=== PATIENT | male | born 1965 | race Caucasian/White ===

== ENCOUNTER 2019-10-03 14:01 | Outpatient (CLI) | payer OTHER ==
[~2019-10-03] VITALS: Ht 180.3 cm; Wt 90.0 kg
--- NOTE | ~2019-10-03 | HEMODYNAMI ---
PATIENT:STACEY SOUZA MEDICAL RECORD: [id number] : 63 [id number] ADMISSION DATE: 10/03/19 Generatedon:10/04/201912:22 Patient name: STACEY SOUZA Patient #: [id number] SSN: [id number] : 1965 Date of study: 10/04/2019 Page: Of Hemodynamic Procedure Report Patient Data Patient Demographics Procedure consent was obtained First Name: STACEY Gender: Male Last Name: LIBBY : 1965 Patient #: [id number] Age: 54 year(s) Race: SSN: [id number] Additional ID: [id number] Contact details [address]: [address] [place] [address] State: [place] City: [place] Zip code: [address] Admission Admission Data Admission Date: 10/03/2019 Admission Time: 14:01 Arrival Date: 10/04/2019 Arrival Time: 0:00 Admit Source: Other Insurance Payor: Private Room #: D.2116 health insurance [facility] #: [id number] Height (in.): 71 BSA: 2.1 (m2) Height (cm.): 180.34 BMI: 27.67 (kg/m2) Weight (lbs.): 198.42 Weight (kg.): 90 Lab Results Lab Result Date: 10/04/2019 Lab Result Time: 0:00 Biochemistry Name Units Result Min Max BUN mg/dl 17 --(---*)-- 7 18 CK-MB ng/ml 11.9 --(----)-* 0 3.6 Creatinine mg/dl 1.6 --(----)-* 0.6 1.3 eGFR ml/min 49 *-(----)-- 90 120 NONAFRICAN Troponin l ng/ml 3.083 --(----)-* 0 0.06 CBC Name Units Result Min Max Hematocrit % 42.3 --(*---)-- 42 54 Hemoglobin g/dl 14.2 --(*---)-- 13.5 17.5 Procedure Procedure Types Cath Procedure Diagnostic Procedure [facility] w/Coronaries Sedation Charges Moderate Sedation up to 45 minutes PCI Procedure Coronary Stent Coronary Stent Initial Hemochron ACT Test Procedure Description Procedure Date Procedure Date: 10/04/2019 Procedure Start Time: 11:47 Procedure End Time: 12:17 Procedure Staff Name Function Dimas Chávez MD Performing Physician Jhoana Silver RT Monitor Brisa Nazario RT Scrub Lashell Mckay RN Nurse Procedure Data Cath Procedure Fluoroscopy Diagnostic fluoroscopy Total fluoroscopy Time: 6.8 time: 6.8 min min Diagnostic fluoroscopy Total fluoroscopy dose: dose: 1242 mGy 1242 mGy Contrast Material Contrast Material Type Amount (ml) Isovue 300 143 Entry Location Entry Primary Successful Side Size Upsize Upsize Entry Closure Alejandra ccessful Closure Location (Fr) 1 (Fr) 2 (Fr) Remarks Device Remarks Radial Right 6 Fr Mechanical artery Short Compression Estimated blood loss: 5 ml Diagnostic catheters Device Type Used For End Catheter Placement DIAGNOSTIC [place] 110cm 5 Multi-vessel Fr catheter ([id number]) Angiography DIAGNOSTIC AR MOD 5Fr Right Coronary Catheter ([id number]) Angiography DIAGNOSTIC AR2 MOD 5 Fr Right Coronary catheter ([id number]) Angiography Procedure Complications No complications Procedure Medications Medication Administration Route Dosage Oxygen etCO2 Nasal cannula 2 l/min Lidocaine 2% added to field 20 Heparin Flush Bag added to field 2 bags (1000units/500ml NS) 0.9% NaCl I.V. 100 ml/hr Radial Cocktail added to field 1 syringe (Verapamil 2mg/Nitro 400mcg/Heparin 1500units) Versed I.V. 2 mg Fentanyl I.V. 100 mcg Versed I.V. 2 mg Fentanyl I.V. 100 mcg Versed I.V. 1 mg Heparin Bolus I.V. 9000 units Nitroglycerin IC/IA I.C. 100 mcg Versed I.V. 1 mg Plavix P.O. 600 mg Hemodynamics Rest BSA: 2.1 (m2) HGB: 14.2 (g/dl) O2 Consumption: Estimated: 249.2 (ml/min) O2 Cons umption indexed: Estimated:118.67 (ml/min/m) Heart Rate: 70 (bpm) Pressure Samples Time Site Value (mmHg) Purpose Heart Use Rate(bpm) 11:51 LV 100/-4,2 Snapshot 68 Gradients Valve Time Site Site Mean SEP/DFP Peak To Heart Use 1 2 (mmHg) (sec/min) Peak Rate (mmHg) (bpm) Aortic 11:51 LV AO 83 Snapshots Pre Cath Intra NCS Post Cath Vital Signs Time Heart Resp SPO2 etCO2 NIBP (mmHg) Rhythm Pain Sedation Rate (ipm) (%) (mmHg) Status Level (bpm) 11:36:34 72 14 96 0 120/71(103) NSR 0 (11) 10(A) , No pain 11:40:52 70 17 94 0 125/73(90) NSR 0 (11) 10(A) , No pain 11:45:08 66 23 95 0 127/83(93) NSR 0 (11) 10(A) , No pain 11:49:22 65 18 92 0 118/72(92) NSR 0 (11) 10(A) , No pain 11:53:36 77 15 96 0 117/72(96) NSR 0 (11) 9(A) , No pain 11:57:50 78 16 94 0 129/81(105) NSR 0 (11) 9(A) , No pain 12:02:04 74 15 94 0 121/74(96) NSR 0 (11) 9(A) , No pain 12:06:22 74 16 96 0 112/68(92) NSR 0 (11) 9(A) , No pain 12:10:37 77 15 94 0 119/69(85) NSR 0 (11) 9(A) , No pain 12:14:50 76 14 96 0 122/70(84) NSR 0 (11) 10(A) , No pain Medications Time Medication Route Dose Verified Delivered Reason Not es Effectiveness by by 11:36:02 Oxygen etCO2 2 l/min Dimas Buffie used for Nasal Kyler Mckay RN procedure cannula 11:36:09 Lidocaine 2% added 20ml Dimas Dimas for local to vial Kyler Chávez MD anesthetic field 11:36:15 Heparin Flush added 2 bags Dimas Dimas used for Bag to Kyler Chávez MD procedure (1000units/500ml field NS) 11:36:23 0.9% NaCl I.V. 100 Dimas Buffie Per physician ml/hr Kyler Mckay RN 11:36:30 Radial Cocktail added 1 Dimas Dimas for (Verapamil to syringe Kyler Chávez MD vasodilation 2mg/Nitro field 400mcg/Heparin 1500units) 11:42:08 Versed I.V. 2 mg Dimas Buffie for sedation Kyler Mckay RN 11:42:15 Fentanyl I.V. 100 mcg Dimas Buffie for sedation Kyler Mckay RN 11:48:31 Versed I.V. 2 mg Dimas Buffie for sedation Kyler Mckay RN 11:48:39 Fentanyl I.V. 100 mcg Dimas Buffie for sedation Kyler Mckay RN 11:51:07 Versed I.V. 1 mg Dimas Buffie for sedation Kyler Mckay RN 12:04:26 Heparin Bolus I.V. 9000 Dimas Buffie for viet ified units Kyler Mckay RN anticoagulation with dr chávez 12:04:42 Nitroglycerin I.C. 100 mcg Dimsa Dimas for IC/IA Kyler Chávez MD vasodilation 12:10:24 Versed I.V. 1 mg Dimas Buffie for sedation Kyler Mckay RN 12:18:44 Plavix P.O. 600 mg Dimas Buffie for Kyler Mckay RN antiplatelet therapy Procedure Log Time Note 11:05:47 Informed consent obtained and on chart 11:06:07 Diagnostic Cath Status : Elective 11:07:22 Lab Result : Troponin l 3.083 ng/ml 11:07:22 Lab Result : Hemoglobin 14.2 g/dl 11:07:22 Lab Result : eGFR NONAFRICAN 49 ml/min 11:07:22 Lab Result : BUN 17 mg/dl 11:07:22 Lab Result : Creatinine 1.6 mg/dl 11:07:22 Lab Result : CK-MB 11.9 ng/ml 11:07:22 Lab Result : Hematocrit 42.3 % 11:07:25 Arrival Date: 10/04/2019 12:00:00 AM 11:07:26 Admit Source: Other 11:07:29 Patient Height : 71 inches 11:07:36 Patient Weight : 198.42 lbs 11:07:40 Insurance Payor : Private health insurance 11:08:07 Procedure Status Urgent Heart Cath (IP). 11:08:10 Time tracking: Regular hours (M-F 7:00 - 5:00) 11:08:14 Plan of Care:Hemodynamics will remain stable., Cardiac rhythm will remain stable., Comfort level will be maintained., Respiratory function will remain adequate., Patient/ family verbilizes understanding of procedure., Procedure tolerated without complication., Recovers from procedure without complications.. 11:19:58 Lashell Mckay RN sent for patient. Start room use. 11:22:46 Risk of Mortality: 0.1 11:22:50 Risk of blood transfusion: 0.2 11:22:54 Risk of LANDEN: 2.8 11:23:08 3a) 45-59 Moderately reduced kidney function. 11:24:07 Maximum allowable contrast dose (3.7 X eGFR X 0.75)133 ml. 11:24:12 Sedation plan: IV Moderate Sedation Medication:Versed, Fentanyl 11:27:35 Patient received from Med II to CCL 1 Alert and oriented. Tansferred to table in Supine position. 11:27:37 Warm blankets applied, and ines hugger turned on for patient comfort. 11:27:37 Correct patient and procedure confirmed by team. 11:27:38 ECG and BP/O2 sat monitors applied to patient. 11:35:25 Vital chart was started 11:36:02 Oxygen 2 l/min etCO2 Nasal cannula was administered by Lashell Mckay RN; used for procedure; Verbal order read back and verified. 11:36:09 Lidocaine 2% 20ml vial added to field was administered by Dimas Chávez MD; for local anesthetic; Verbal order read back and verified. 11:36:15 Heparin Flush Bag (1000units/500ml NS) 2 bags added to field was administered by Dimas Chávez MD; used for procedure; Verbal order read back and verified. 11:36:23 0.9% NaCl 100 ml/hr I.V. was administered by Lashell Mckay RN; Per physician; Verbal order read back and verified. 11:36:30 Radial Cocktail (Verapamil 2mg/Nitro 400mcg/Heparin 1500units) 1 syringe added to field was administered by Dimas Chávez MD; for vasodilation; Verbal order read back and verified. 11:39:29 Baseline sample Acquired. 11:39:32 Rhythm: sinus rhythm 11:39:33 Full Disclosure recording started 11:39:39 H&P Date Dictated: 10/04/2019 New H&P dictated by physician.. 11:39:43 Pre-procedure instructions explained to patient. 11:39:44 Pre-op teaching completed and patient verbalized understanding. 11:39:46 Family unavailable. 11:39:47 Patient NPO since Midnight. 11:39:49 Is the patient allergic to Iodine/contrast media? No. 11:39:50 Was the patient premedicated? Yes 11:39:52 Is patient on blood thinner?No 11:39:53 Patient diabetic? Yes. 11:39:55 If diabetic: On Metformin? No 11:40:01 Previous problem with sedation/anesthesia? No ? 11:40:03 Snore? Yes 11:40:04 Sleep apnea? Yes 11:40:05 Deviated septum? No 11:40:05 Opens mouth fully? Yes 11:40:06 Sticks out tongue? Yes 11:40:08 Airway obstruction? No ? 11:40:10 Dentures? No ? 11:40:13 Pre procedure: right dorsailis pedis pulse 2+ Normal; easily identifiable; not easily obliterated 11:40:16 Pre procedure: left dorsailis pedis pulse 2+ Normal; easily identifiable; not easily obliterated 11:40:19 Patient pain scale 0/10 ?. 11:40:31 IV patent on arrival in left forearm with 0.9% NaCl at [facility]. 11:40:33 Lab results completed and on chart. 11:40:44 Right Radial & Right Groin area was prepped with chlora-prep and draped in sterile fashion 11:40:46 Alarms reviewed by R. N. 11:40:46 Sharps counted by scrub and verified by R.N. 11:40:48 Physician arrived 11:40:48 --------ALL STOP TIME OUT------ 11:40:48 Final Timeout: patient, procedure, and site verified with staff and physician. All members of the team are in agreement. 11:40:51 Right Radial & Right Groin site verified by team. 11:40:54 Fire Safety Assessment: A--An alcohol-based skin anteseptic being used preoperatively., C--Open oxygen or nitrous oxide is being used., D--An ESU, laser, or fiber-optic light is being used. 11:40:57 Physical assessment completed. ASA score P 2 - A patient with mild systemic disease as per Dimas Chávez MD. 11:41:10 Use device set Radial Dx or PCI 11:41:12 ACIST Syringe (88907) opened to sterile field. 11:41:12 Medline Cath Pack ([id number]) opened to sterile field. 11:41:13 Bag Decanter (2001S) opened to sterile field. 11:41:13 ACIST Hand Control (84267) opened to sterile field. 11:41:14 ACIST Manifold (08828) opened to sterile field. 11:41:14 Tegaderm 4 x 4 (1626W) opened to sterile field. 11:41:15 MBrace Wrist Support ([id number]) opened to sterile field. 11:41:17 NEEDLE Cook 21G 4cm Radial (T18118) opened to sterile field. 11:41:18 SHEATH 6FR RAIN (4701968) opened to sterile field. 11:41:19 EMERCassatt Guide Wire (032-417) opened to sterile field. 11:42:08 Versed 2 mg I.V. was administered by Lashell Mckay RN; for sedation; Verbal order read back and verified. 11:42:15 Fentanyl 100 mcg I.V. was administered by Lashell Mckay RN; for sedation; Verbal order read back and verified. 11:47:17 Procedure started. 11:47:22 Local anesthetic to right radial artery with Lidocaine 2% by Dimas Chávez MD.INITIAL ACCESS ONLY 11:47:31 A 6 Fr Short sheath was inserted into the Right Radial artery 11:48:31 Versed 2 mg I.V. was administered by Lashell Mckay RN; for sedation; Verbal order read back and verified. 11:48:39 Fentanyl 100 mcg I.V. was administered by Lashell Mckay RN; for sedation; Verbal order read back and verified. 11:50:44 A DIAGNOSTIC [place] 110cm 5 Fr catheter (891533) was advanced over the wire and used for Multi-vessel Angiography. 11:51:07 Versed 1 mg I.V. was administered by Lashell Mckay RN; for sedation; Verbal order read back and verified. 11:51:24 LV hemodynamics recorded. 11:51:25 LV gram done using AGEE 11:51:28 Injector settings: Ml/sec: 5, Volume: 15, 11:51:37 EF : 55 % 11:52:24 LCA angiography performed. 11:52:27 Injector settings: Ml/sec: 3, Volume: 6, 11:54:24 Catheter removed. 11:54:44 A DIAGNOSTIC AR MOD 5Fr Catheter ([id number]) was advanced over the wire and used for Right Coronary Angiography. 11:56:45 Catheter removed. unable to cannulate vessel. 11:56:55 A DIAGNOSTIC AR2 MOD 5 Fr catheter (169783V) was advanced over the wire and used for Right Coronary Angiography. 11:58:27 RCA angiography performed. 11:58:30 Injector settings: Ml/sec: 3, Volume: 6, 11:58:44 Catheter removed. 11:59:53 Proceeding to intervention. 12:00:08 INFLATOR Merit BasixCompak (UH7790) opened to sterile field. 12:00:09 TUBING High Pressure Extension Tubing (Kyler) ([id number]) opened to sterile field. 12:00:20 GUIDE 6FR XBLAD 3.5 catheter (67847382) opened to sterile field. 12:00:34 BMW 300cm [place] 2 J wire ([id number]) opened to sterile field. 12:00:44 ACC Pre-intervention HECTOR Flow is 3. 12:00:50 Pre PCI Site: Samish mLAD has 80% stenosis. 12:00:56 6 Fr xblad 3.5 guide catheter was inserted over the wire 12:01:41 bmw wire advanced. 12:04:26 Heparin Bolus 9000 units I.V. was administered by Lashell Mckay RN; for anticoagulation; verified with dr chávez Verbal order read back and verified. 12:04:42 Nitroglycerin IC/IA 100 mcg I.C. was administered by Dimas Chávez MD; for vasodilation; Verbal order read back and verified. 12:07:32 Wire advanced across lesion. 12:10:24 Versed 1 mg I.V. was administered by Lashell Mckay RN; for sedation; Verbal order read back and verified. 12:13:07 Place stent Inflation Number: 1 A KHOI OTW 3.5 x 22 stent ([id number]) was prepped and advanced across the Mid LAD 80. The stent was deployed at 11 SOUMYA for 0:10 (min:sec) 0. 12:13:45 Stent catheter was removed intact over wire. 12:13:46 Wire removed. 12:13:47 Guide catheter removed. 12:13:49 ACC Post-intervention HECTOR Flow is 3. 12:13:54 Post PCI Site: Samish mLAD has 0% stenosis. 12:14:01 ZEPHYR REGULAR TR BAND (727474) opened to sterile field. 12:14:19 Sheath removed intact; hemostasis achieved with Mechanical Compression to the Right Radial artery. 12:14:48 Procedure ended.(Physican Out) 12:15:07 Fluoroscopy time 06.80 minutes. 12:15:17 Fluoroscopy dose: 1242 mGy 12:15:17 Flurop Dose total: 1242 12:15:32 Dose Area Product 07906 mGy/cm. 12:15:36 Contrast amount:Isovue 300 143ml. 12:15:38 Maximum allowable dose exceeded? No. 12:15:39 Sharps counted by scrub and verified by R.N. 12:15:41 [place] band inflated with 10cc of air. 12:15:43 Insertion/operative site no bleeding no hematoma. 12:15:49 Post right radial artery:stable 12:15:51 Post Procedure Pulses reassessed and unchanged 12:15:53 Post procedure rhythm: unchanged. 12:15:56 Estimated blood loss: 5 ml 12:15:58 Post procedure instruction explained to patient.Patient verbalizes understanding. 12:15:59 Patient needs reinforcement of post procedure teaching. 12:16:37 Procedure type changed to Cath procedure, Diagnostic procedure, LHC, [facility] w/Coronaries, Sedation Charges, Moderate Sedation up to 45 minutes, PCI procedure, Coronary Stent, Coronary Stent Initial, Hemochron ACT Test 12:16:38 Procedure and supply charges have been captured, reviewed, submitted and are correct. 12:16:44 Procedure Complication : No complications 12:16:47 Vital chart was stopped 12:16:48 [facility] Findings: MVD- PCI performed (see procedure note) 12:16:51 See physician's report for complete and final results. 12:16:52 Report given to [facility]. 12:17:02 Patient transfered to [facility] with Stretcher. 12:17:04 Procedure ended. 12:17:04 Full Disclosure recording stopped 12:17:11 ACC-PCI Only Patient was given prescriptions, or instructed by Dimas Chávez MD to start/continue the following medications upon discharge: Plavix 12:17:13 End room use (Document Last) 12:17:51 End room use (Document Last) 12:18:09 End room use (Document Last) 12:18:44 Plavix 600 mg P.O. was administered by Lashell Mckay RN; for antiplatelet therapy; Verbal order read back and verified. 12:22:08 ACT drawn and resulted at out of range high seconds. (normal therapeutic range 180-240 seconds). Intervention Summary Intervention Notes Time ActionType Lesion and Equipment Action# Pressure Duration Attributes Used 12:13:07 Place stent Mid LAD KHOI OTW 3.5 1 11 00:10 x 22 stent ([id number]) Device Usage Item Name Manufacture Quantity Catalog Hospital Part Current Mini mal Lot# / Number Charge Number Stock Stock Serial# Code ACIST Syringe Acist 1 93793 294385 965682 312823 20 (14619) Medical Systems Inc Medline Cath Medline 1 [id number] 950948 16195 210790 5 Pack ([id number]) Bag Decanter Microtek 1 2002S 655149 28038 243679 5 (2001S) Medical Inc. ACIST Hand Acist 1 61505 148441 317963 266703 5 Control Medical (03039) Systems Inc ACIST Acist 1 21849 320520 024913 807731 5 Manifold Medical (69290) Systems Inc Tegaderm 4 x 3M 1 1626W 366335 600363 401298 5 4 (1626W) MBrace Wrist Advanced 1 140-0250-00 700101 59012 279400 5 Support Vascular (432964664) Dynamics NEEDLE Cook Cook Medical 1 V64319 643223 916162 345548 5 21G 4cm Radial (R47373) SHEATH 6FR Cardinal 1 0100373 311595 5063569 118611 5 [employer] (4202768) EMERALD Guide Cardinal 1 014-455 622158 703145 517145 5 Wire Health (305-677) DIAGNOSTIC Terumo 1 65-8996 990557 971436 469310 5 [place] 110cm 5 Fr catheter (802572) DIAGNOSTIC AR Cardinal 1 047108G 116782 595059 144916 15 MOD 5Fr Health Catheter (116359L) DIAGNOSTIC Cardinal 1 685225W 232940 138792 581930 20 AR2 MOD 5 Fr Health catheter (890977Q) INFLATOR Merit 1 MC2559 309307 282028 831272 15 Merit Medical BasixCompak (OD0209) TUBING High Merit 1 [id number] 730111 61442 047220 10 Pressure Medical Extension Tubing (Kyler) (QT0870Q) GUIDE 6FR Cardinal 1 16659632 846339 971738 376664 10 XBLAD 3.5 Health catheter (19897509) BMW 300cm Velazquez 1 [id number] 956228 518486 655467 5 [place] 2 J Vascular wire (2041357Z) KHOI OTW 3.5 Medtronic 1 [id number] 232541 0918003 443289 5 [id number] x 22 stent ([id number]) ZEPHYR Cardinal 1 397252 773022 7877431 670402 5 REGULAR TR Health BAND (556445) Signature Audit [place] Stage Time Signature Unsigned Intra-Procedure 10/04/2019 Jhoana Silver 12:17:51 PM RT(R) Intra-Procedure 10/04/2019 Lashell Mckay RN 12:18:09 PM Intra-Procedure 10/04/2019 Dimas Chávez MD 12:22:37 PM [place] [id number] [place] [address]
[2019-10-03] MEDS ORDERED: ASCORBIC ACID500 MG PO (14:23)
[2019-10-03] MEDS ORDERED: TRICOR145 MG PO (14:24)
[2019-10-03] MEDS ORDERED: ZESTORETIC 20-1 EACH PO (14:24)
[2019-10-03] MEDS ORDERED: LIPITOR40 MG PO (14:24)
[2019-10-03] MEDS ORDERED: GLIPIZIDE10 MG PO (14:25)
[2019-10-03] MEDS ORDERED: NOVOLIN 70/30 110 ML SC (14:26)
[2019-10-03] MEDS ORDERED: JANUMET XR 50-1 EACH PO (14:26)
[2019-10-03] MEDS ORDERED: JARDIANCE25 MG PO (14:27)
[2019-10-03 14:45] LABS: BASOPHILS 0.5 % (0-2); EOSINOPHILS 0.6 % (0-7); HEMATOCRIT 46.8 % (42.0-54.0); HEMOGLOBIN 15.6 g/dL (13.5-17.5); IMMATURE GRANULOCYTES 0.3 % (0-5); LYMPHOCYTES 25.2 % (15-50); MCHC 33.3 g/dL (31.0-37.0); MEAN PLATELET VOLUME 9.4 fL (7.4-10.4); NEUTROPHILS 66.4 % (40-80); PLATELET COUNT 400 10x3/uL (130-400); RDW 12.9 % (11.5-14.5); WBC 10.2 10x3/uL (4.8-10.8)
[2019-10-03 14:51] LABS: APTT 23.9 SECONDS (22.8-39.4); INR 0.98 (0.85-1.17); PROTIME 12.9 SECONDS (11.6-15.0)
[2019-10-03 15:27] LABS: CALC OSMOLALITY 282 mosm/kg (275-300); CALCIUM 9.3 mg/dL (8.5-10.1); CARBON DIOXIDE 22.9 mmol/L (21.0-32.0); CHLORIDE - SERUM 100 mmol/L (98-107); CREATININE - SERUM 1.7 mg/dL (0.6-1.3); GLUCOSE 286 mg/dL (74-106); POTASSIUM - SERUM 3.7 mmol/L (3.5-5.1); SODIUM 136 mmol/L (136-145); UREA NITROGEN 15 mg/dL (7-18); eGFR NON AFRICAN AMERICAN 45 mL/min (90-120)
[2019-10-03 15:41] LABS: ALBUMIN 3.9 g/dL (3.4-5.0); ALKALINE PHOSPHATASE 71 U/L (30-120); ALT (SGPT) 61 U/L (10-68); BILIRUBIN - TOTAL 0.69 mg/dL (0.2-1.3); CKMB 1.5 U/L (0.0-3.6); CREATINE KINASE 183 UL (21-232); MAGNESIUM - SERUM 1.6 mg/dL (1.8-2.4); PROTEIN - SERUM 7.3 g/dL (6.4-8.2); TROPONIN-I 0.027 ng/mL (0.000-0.060)
[2019-10-03 16:06] LABS: CHOL - HDL RATIO 6.2 ratio (2.3-4.9); LDL-HDL RATIO 3.7 ratio (1.5-3.5)
[2019-10-03 18:01] VITALS: BP 122/74; Ht 180.3 cm; Wt 90.0 kg
[2019-10-03 18:27] VITALS: BP 123/50
[2019-10-03 19:14] LABS: CKMB 11.9 U/L (0.0-3.6); CREATINE KINASE 275 UL (21-232)
[2019-10-03 19:16] LABS: TROPONIN-I 3.083 ng/mL (0.000-0.060)
--- NOTE | 2019-10-03 19:23 | NUR ---
RECEIVED BEDSIDE REPORT. PATIENT IS ALERT AND ORIENTED, RESTING COMFORTABLY IN BED. RESPIRATIONS ARE EVEN AND UNLABORED. PATIENT REQUESTING A SHOWER. NO S/S OF DISTRESS. NO C/O PAIN. NEEDS MET. CALL LIGHT WITHIN REACH. WILL CPOC.
[2019-10-03 22:09] VITALS: BP 130/70
[2019-10-04 00:54] VITALS: BP 132/72
[2019-10-04 01:37] LABS: BASOPHILS 0.3 % (0-2); EOSINOPHILS 1.2 % (0-7); HEMATOCRIT 42.3 % (42.0-54.0); HEMOGLOBIN 14.2 g/dL (13.5-17.5); IMMATURE GRANULOCYTES 0.3 % (0-5); MCHC 33.6 g/dL (31.0-37.0); MCV 89.4 fL (80.0-100.0); MEAN PLATELET VOLUME 9.2 fL (7.4-10.4); MONOCYTES 7.6 % (2-11); NEUTROPHILS 55.6 % (40-80); PLATELET COUNT 387 10x3/uL (130-400); RBC 4.73 10x6/uL (4.20-6.10); RDW 13.1 % (11.5-14.5); WBC 10.4 10x3/uL (4.8-10.8)
[2019-10-04 02:01] LABS: APTT 25.1 SECONDS (22.8-39.4); PROTIME 13.2 SECONDS (11.6-15.0)
[2019-10-04 02:21] LABS: CALC OSMOLALITY 279 mosm/kg (275-300); CALCIUM 8.1 mg/dL (8.5-10.1); CARBON DIOXIDE 23.2 mmol/L (21.0-32.0); CHLORIDE - SERUM 100 mmol/L (98-107); CHOLESTEROL, TOTAL 156 mg/dL (0-200); CKMB 19.4 U/L (0.0-3.6); CREATINE KINASE 377 UL (21-232); CREATININE - SERUM 1.6 mg/dL (0.6-1.3); GLUCOSE 239 mg/dL (74-106); HDL CHOLESTEROL 26 mg/dL (32-96); LDL CHOLESTEROL 86 mg/dL (0-100); LDL-HDL RATIO 3.3 ratio (1.5-3.5); MAGNESIUM - SERUM 2.3 mg/dL (1.8-2.4); PHOSPHOROUS 3.7 mg/dL (2.5-4.9); POTASSIUM - SERUM 3.6 mmol/L (3.5-5.1); SODIUM 135 mmol/L (136-145); TRIGLYCERIDE 222 mg/dL (30-200); TROPONIN-I 13.034 ng/mL (0.000-0.060); UREA NITROGEN 17 mg/dL (7-18); eGFR NON AFRICAN AMERICAN 48 mL/min (90-120)
[2019-10-04 05:05] VITALS: BP 136/79
[2019-10-04 09:31] VITALS: BP 115/72
--- NOTE | 2019-10-04 11:30 | NUR ---
PRE-OPS GIVEN. TO CATHLAB BY BED.
--- NOTE | 2019-10-04 12:48 | NUR ---
BACK FROM TRACK PRODUCTION ENGINEER. VS WNL. RIGHT WRIST STABLE WITHOUT BLEEDING OR HEMATOMA NOTED. TR BAND INTACT. WILL MONITOR.
[2019-10-04] MEDS ORDERED: PLAVIX75 MG PO (14:28)
[2019-10-04 15:04] VITALS: BP 132/66
--- NOTE | 2019-10-04 16:56 | NUR ---
RIGHT WRIST STABLE. IV AND TELEMETRY DCD. DC PLANS GIVEN. UNDERSTANDING VOICED.
--- NOTE | 2019-10-04 17:34 | NUR ---
ESCORTED TO CAR BY W/C.
== END 2019-10-04 17:34 | disposition home or self-care (01) ==
LOC: D.ER 14:01 → D.OPS 14:01 → D.M2 14:01 → EDSTATUS 16:03 → D.OPS 10-04 17:34
PROVIDERS: Emergency Medicine; Internal Medicine Cardiovascular Disease; ATTEND Internal Medicine Nephrology
DX: I21.4 Non-ST elevation (NSTEMI) myocardial infarction (principal); I25.110 Atherosclerotic heart disease of native coronary artery with unstable angina pectoris; E11.9 Type 2 diabetes mellitus without complications; I10 Essential (primary) hypertension; Z79.4 Long term (current) use of insulin; E78.5 Hyperlipidemia, unspecified; M19.90 Unspecified osteoarthritis, unspecified site; N17.9 Acute kidney failure, unspecified; E83.42 Hypomagnesemia

== ENCOUNTER → 2020-02-22 09:25 | Outpatient (CLI) | payer OTHER ==
[2019-10-03 18:01] VITALS: BMI 24.8
[~2020-02-22 09:25] MED LIST: ASCORBIC ACID500 MG PO; GLIPIZIDE10 MG PO; JANUMET XR 50-1 EACH PO; JARDIANCE25 MG PO; LIPITOR40 MG PO; NOVOLIN 70/30 110 ML SC; PLAVIX75 MG PO; TRICOR145 MG PO; ZESTORETIC 20-1 EACH PO
== END | disposition home or self-care (01) ==
LOC: D.HCCARDIO 09:25
PROVIDERS: ATTEND Internal Medicine Cardiovascular Disease
DX: I25.10 Atherosclerotic heart disease of native coronary artery without angina pectoris (principal)

== ENCOUNTER 2020-03-28 11:03 | Day surgery (SDC) | payer OTHER ==
[~2020-03-28] VITALS: Ht 180.3 cm; Wt 91.3 kg
--- NOTE | ~2020-03-28 | HEMODYNAMI ---
PATIENT:STACEY SOUZA MEDICAL RECORD: [id number] : 63 LOCATION:[facility] ADMISSION DATE: 03/28/20 Generatedon:03/28/202013:44 Patient name: STACEY SOUZA Patient #: [id number] SSN: [id number] : 1965 Date of study: 03/28/2020 Page: Of Hemodynamic Procedure Report Patient Data Patient Demographics Procedure consent was obtained First Name: STACEY Gender: Male Last Name: LIBBY : 1965 Patient #: [id number] Age: 55 year(s) Race: SSN: [id number] Additional ID: [id number] Contact details [address]: [address] [place] [address] State: [place] City: [place] Zip code: [address] Admission Admission Data Admission Date: 03/28/2020 Admission Time: 11:03 Arrival Date: 03/28/2020 Arrival Time: 13:00 Admit Source: Other Insurance Payor: Private health insurance [facility] #: [id number] Height (in.): 27.95 BSA: 1.51 (m2) Height (cm.): 71 BMI: 400.71 (kg/m2) Weight (lbs.): 445.34 Weight (kg.): 202 Procedure Procedure Types Cath Procedure Diagnostic Procedure C [facility] w/Coronaries Sedation Charges Moderate Sedation up to 15 minutes Procedure Description Procedure Date Procedure Date: 03/28/2020 Procedure Start Time: 13:27 Procedure End Time: 13:41 Procedure Staff Name Function Dimas Chávez MD Performing Physician Jhoana Silver RT Monitor Brisa Nazario RT Scrub Lashell Mckay RN Nurse Indication Angina Procedure Data Cath Procedure Fluoroscopy Diagnostic fluoroscopy Total fluoroscopy Time: 3.6 time: 3.6 min min Diagnostic fluoroscopy Total fluoroscopy dose: 731 dose: 731 mGy mGy Contrast Material Contrast Material Type Amount (ml) Isovue 300 69 Entry Location Entry Primary Successful Side Size Upsize Upsize Entry Closure Alejandra ccessful Closure Location (Fr) 1 (Fr) 2 (Fr) Remarks Device Remarks Radial Right 6 Fr Mechanical artery Short Compression Estimated blood loss: 5 ml Diagnostic catheters Device Type Used For End Catheter Placement DIAGNOSTIC Littcarr 110cm 5 Multi-vessel Fr catheter ([id number]) Angiography DIAGNOSTIC AR2 MOD 5 Fr Right Coronary catheter ([id number]) Angiography Procedure Complications No complications Procedure Medications Medication Administration Route Dosage Oxygen etCO2 Nasal cannula 2 l/min Lidocaine 2% added to field 20 Heparin Flush Bag added to field 2 bags (1000units/500ml NS) 0.9% NaCl I.V. 100 ml/hr Radial Cocktail I.A. 1 syringe (Verapamil 2mg/Nitro 400mcg/Heparin 1500units) Versed I.V. 2 mg Fentanyl I.V. 50 mcg Versed I.V. 1 mg Fentanyl I.V. 50 mcg Versed I.V. 1 mg Fentanyl I.V. 50 mcg Hemodynamics Rest BSA: 1.51 (m2) O2 Consumption: Estimated: 177.42 (ml/min) O2 Consumption indexed : Estimated:117.5 (ml/min/m) Heart Rate: 68 (bpm) Pressure Samples Time Site Value (mmHg) Purpose Heart Use Rate(bpm) 13:30 LV 111/2,14 Snapshot 66 Gradients Valve Time Site Site Mean SEP/DFP Peak To Heart Use 1 2 (mmHg) (sec/min) Peak Rate (mmHg) (bpm) Aortic 13:31 LV AO 86 Snapshots Pre Cath Intra NCS Post Cath Vital Signs Time Heart Resp SPO2 etCO2 NIBP Rhythm Pain Sedation Rate (ipm) (%) (mmHg) (mmHg) Status Level (bpm) 13:18:21 64 12 98 19.4 107/76(89) NSR 0 (11) 10(A) , No pain 13:22:31 71 15 94 0 121/75(91) NSR 0 (11) 10(A) , No pain 13:26:39 67 16 97 0 114/71(95) NSR 0 (11) 10(A) , No pain 13:30:55 71 15 100 18.7 101/52(68) NSR 0 (11) 9(A) , No pain 13:35:05 74 15 97 0 108/66(82) NSR 0 (11) 9(A) , No pain 13:39:17 70 13 99 38.1 103/67(86) NSR 0 (11) 10(A) , No pain Medications Time Medication Route Dose Verified Delivered Reason Notes Effectiveness by by 13:17:24 Oxygen etCO2 2 l/min Dimas Buffie used for Nasal Kyler Mckay RN procedure cannula 13:17:32 Lidocaine 2% added 20ml Dimas Dimas for local to vial Kyler Chávez MD anesthetic field 13:17:40 Heparin Flush added 2 bags Dimas Dimas used for Bag to Kyler Chávez MD procedure (1000units/500ml field NS) 13:17:49 0.9% NaCl I.V. 100 Dimas Buffie Per ml/hr Kyler Mckay RN physician 13:23:11 Versed I.V. 2 mg Dimas Buffie for sedation Kyler Mckay RN 13:23:17 Fentanyl I.V. 50 mcg Dimas Buffie for sedation Kyler Mckay RN 13:27:30 Versed I.V. 1 mg Dimas Buffie for sedation Kyler Mckay RN 13:27:34 Fentanyl I.V. 50 mcg Dimas Buffie for sedation Kyler Mckay RN 13:30:08 Radial Cocktail I.A. 1 Dimas Dimas for (Verapamil syringe Kyler Chávez MD vasodilation 2mg/Nitro 400mcg/Heparin 1500units) 13:34:39 Versed I.V. 1 mg Dimas Buffie for sedation Kyler Mckay RN 13:34:46 Fentanyl I.V. 50 mcg Dimas Buffie for sedation Kyler Mckay RN Procedure Log Time Note 12:37:27 Informed consent obtained and on chart 12:37:31 Diagnostic Cath Status : Elective 12:37:52 Indication : Angina 12:39:20 Arrival Date: 03/28/2020 1:00:00 PM 12:39:37 Admit Source: Other 12:39:40 Insurance Payor : Private health insurance 12:51:38 Procedure Status Elective Heart Cath (OP). 12:51:55 Lashell Mckay RN sent for patient. Start room use. 12:51:56 Time tracking: Regular hours (M-F 7:00 - 5:00) 12:52:01 Plan of Care:Hemodynamics will remain stable., Cardiac rhythm will remain stable., Comfort level will be maintained., Respiratory function will remain adequate., Patient/ family verbilizes understanding of procedure., Procedure tolerated without complication., Recovers from procedure without complications.. 12:55:07 Patient Height : 27.95 inches 12:55:11 Patient Weight : 445.34 lbs 13:17:14 Vital chart was started 13:17:24 Oxygen 2 l/min etCO2 Nasal cannula was administered by Lashell Mckay RN; used for procedure; Verbal order read back and verified. 13:17:32 Lidocaine 2% 20ml vial added to field was administered by Dimas Chávez MD; for local anesthetic; Verbal order read back and verified. 13:17:40 Heparin Flush Bag (1000units/500ml NS) 2 bags added to field was administered by Dimas Chávez MD; used for procedure; Verbal order read back and verified. 13:17:49 0.9% NaCl 100 ml/hr I.V. was administered by Lashell Mckay RN; Per physician; Verbal order read back and verified. 13:20:45 Patient received from Pre/Post Procedure Room to CCL 1 Alert and oriented. Tansferred to table in Supine position. 13:20:46 Warm blankets applied, and ines hugger turned on for patient comfort. 13:20:46 Correct patient and procedure confirmed by team. 13:20:47 ECG and BP/O2 sat monitors applied to patient. 13:20:51 Baseline sample Acquired. 13:20:56 Rhythm: sinus rhythm 13:20:58 Full Disclosure recording started 13:21:03 H&P Date Dictated: 03/28/2020 Within 30 days and on chart., H&P Addendum completed by physician on day of procedure. (MUST COMPLETE FOR ALL OUTPATIENTS). 13:21:04 Pre-procedure instructions explained to patient. 13:21:04 Pre-op teaching completed and patient verbalized understanding. 13:21:06 Family in patients room. 13:21:08 Patient NPO since Midnight. 13:21:10 Is the patient allergic to Iodine/contrast media? No. 13:21:12 Was the patient premedicated? Yes 13:21:13 Is patient on blood thinner?Yes 13:21:15 ACC The patient was administered the following blood thiners within the last 24 hours: ACCPlavix 13:21:17 Patient diabetic? Yes. 13:21:18 If diabetic: On Metformin? No 13:21:20 Previous problem with sedation/anesthesia? No ? 13:21:22 Snore? Yes 13:21:25 Sleep apnea? No 13:21:26 Deviated septum? No 13:21:26 Opens mouth fully? Yes 13:21:27 Sticks out tongue? Yes 13:21:48 Airway obstruction? Yes previously puntured lung; copd 13:21:51 Dentures? No ? 13:21:54 Pre procedure: right dorsailis pedis pulse 2+ Normal; easily identifiable; not easily obliterated 13:22:01 Pre procedure: left dorsailis pedis pulse 2+ Normal; easily identifiable; not easily obliterated 13:22:05 Patient pain scale 0/10 ?. 13:22:14 IV patent on arrival in left forearm with 0.9% NaCl at [facility]. 13:22:16 Lab results completed and on chart. 13:22:34 Stress Test: yes; abnormal inferior 13:22:39 Right Radial & Right Groin area was prepped with chlora-prep and draped in sterile fashion 13:22:40 Alarms reviewed by R. N. 13:22:42 Sharps counted by scrub and verified by R.N. 13:22:44 Physician arrived 13:22:44 --------ALL STOP TIME OUT------ 13:22:45 Final Timeout: patient, procedure, and site verified with staff and physician. All members of the team are in agreement. 13:22:47 Right Radial & Right Groin site verified by team. 13:22:50 Fire Safety Assessment: A--An alcohol-based skin anteseptic being used preoperatively., C--Open oxygen or nitrous oxide is being used., D--An ESU, laser, or fiber-optic light is being used. 13:22:53 Physical assessment completed. ASA score P 2 - A patient with mild systemic disease as per Dimas Chávez MD. 13:23:04 Use device set Radial Dx or PCI 13:23:05 ACIST Syringe (82073) opened to sterile field. 13:23:05 Medline Cath Pack (LVND08277) opened to sterile field. 13:23:06 Bag Decanter (2002) opened to sterile field. 13:23:06 ACIST Hand Control (96128) opened to sterile field. 13:23:07 ACIST Manifold (48055) opened to sterile field. 13:23:07 Tegaderm 4 x 4 (1626W) opened to sterile field. 13:23:08 MBrace Wrist Support ([id number]) opened to sterile field. 13:23:11 Versed 2 mg I.V. was administered by Lashell Mckay RN; for sedation; Verbal order read back and verified. 13:23:14 SHEATH 6FR RAIN (6941495) opened to sterile field. 13:23:15 EMERALD Guide Wire (737-592) opened to sterile field. 13:23:17 Fentanyl 50 mcg I.V. was administered by Lashell Mckay RN; for sedation; Verbal order read back and verified. 13:26:10 2) 60-89 Mildly reduced kidney function, and other findings (as for stage 1) point to kidney disease. 13:26:15 Maximum allowable contrast dose (3.7 X eGFR X 0.75)202 ml. 13:26:20 Sedation plan: IV Moderate Sedation Medication:Versed, Fentanyl 13:27:30 Versed 1 mg I.V. was administered by Lashell Mckay RN; for sedation; Verbal order read back and verified. 13:27:34 Fentanyl 50 mcg I.V. was administered by Lashell Mckay RN; for sedation; Verbal order read back and verified. 13:27:37 Procedure started. 13:27:40 Local anesthetic to right radial artery with Lidocaine 2% by Dimas Chávez MD.INITIAL ACCESS ONLY 13:27:48 A 6 Fr Short sheath was inserted into the Right Radial artery 13:28:40 Zero performed for pressure channel P1 13:30:08 Radial Cocktail (Verapamil 2mg/Nitro 400mcg/Heparin 1500units) 1 syringe I.A. was administered by Dimas Chávez MD; for vasodilation; Verbal order read back and verified. 13:31:07 A DIAGNOSTIC Littcarr 110cm 5 Fr catheter (069345) was advanced over the wire and used for Multi-vessel Angiography. 13:31:09 LV hemodynamics recorded. 13:31:10 LV gram done using AGEE 13:31:13 Injector settings: Ml/sec: 5, Volume: 15, 13:31:36 EF : 60 % 13:31:40 LCA angiography performed. 13:32:21 Injector settings: Ml/sec: 3, Volume: 6, 13:34:23 Catheter removed. 13:34:32 A DIAGNOSTIC AR2 MOD 5 Fr catheter (903127A) was advanced over the wire and used for Right Coronary Angiography. 13:34:39 Versed 1 mg I.V. was administered by Lashell Mckay RN; for sedation; Verbal order read back and verified. 13:34:46 Fentanyl 50 mcg I.V. was administered by Lashell Mckay RN; for sedation; Verbal order read back and verified. 13:36:16 RCA angiography performed. 13:36:31 Injector settings: Ml/sec: 3, Volume: 6, 13:37:43 Catheter removed. 13:37:46 ZEPHYR REGULAR TR BAND (894019) opened to sterile field. 13:38:01 Sheath removed intact; hemostasis achieved with Mechanical Compression to the Right Radial artery. 13:38:18 Procedure ended.(Physican Out) 13:39:21 Fluoroscopy time 03.60 minutes. 13:39:27 Flurop Dose total: 731 13:39:27 Fluoroscopy dose: 731 mGy 13:39:33 Dose Area Product 78048 mGy/cm. 13:39:47 Contrast amount:Isovue 300 69ml. 13:39:56 Maximum allowable dose exceeded? No. 13:39:58 Sharps counted by scrub and verified by R.N. 13:39:59 Insertion/operative site no bleeding no hematoma. 13:40:24 Post right radial artery:stable 13:40:26 Post Procedure Pulses reassessed and unchanged 13:40:30 Post procedure rhythm: unchanged. 13:40:32 Estimated blood loss: 5 ml 13:40:34 Post procedure instruction explained to patient.Patient verbalizes understanding. 13:40:35 Patient needs reinforcement of post procedure teaching. 13:40:50 Procedure type changed to Cath procedure, Diagnostic procedure, LHC, [facility] w/Coronaries, Sedation Charges, Moderate Sedation up to 15 minutes 13:40:51 Procedure and supply charges have been captured, reviewed, submitted and are correct. 13:40:55 Procedure Complication : No complications 13:40:57 Vital chart was stopped 13:41:00 [facility] Findings: mild to moderate CAD (<70%) 13:41:03 Operative report dictated upon procedure completion. 13:41:03 See physician's report for complete and final results. 13:41:05 Report given to Pre/Post Procedure Room. 13:41:07 Patient transfered to Pre/Post Procedure Room with Stretcher. 13:41:09 Procedure ended. 13:41:09 Full Disclosure recording stopped 13:41:13 End room use (Document Last) 13:42:42 End room use (Document Last) 13:43:24 End room use (Document Last) Device Usage Item Name Manufacture Quantity Catalog Hospital Part Current Minima l Lot# / Number Charge Number Stock Stock Serial# Code ACIST Acist 1 80365 823243 [id number] [id number] 20 Syringe Medical (53668) Systems Inc Medline Medline 1 [id number] 806007 33545 324002 5 Cath Pack ([id number]) Bag Microtek 1 2001S 228886 43481 411254 5 Decanter Medical Inc. () ACIST Hand Acist 1 69135 858562 033125 231705 5 Control Medical (25129) Systems Inc ACIST Acist 1 28304 879399 659966 007898 5 Manifold Medical (09963) Systems Inc Tegaderm 4 3M 1 1626W 978335 185860 222954 5 x 4 (1626W) MBrace Advanced 1 140-0250-00 559210 35874 680780 5 Wrist Vascular Support Dynamics ([id number]) SHEATH 6FR Cardinal 1 0412290 270365 5095078 048368 5 RAIN Health (1995823) EMERALD Cardinal 1 502-455 528922 283387 797382 5 Guide Wire Health (502-455) DIAGNOSTIC Terumo 1 40-5013 524568 199229 268083 5 Littcarr 110cm 5 Fr catheter (277156) DIAGNOSTIC Cardinal 1 264299N 420848 112675 594704 20 AR2 MOD 5 Health Fr catheter (609361P) ZEPHYR Cardinal 1 932906 344358 5143662 578897 5 REGULAR TR Health BAND (709877) Signature Audit [place] Stage Time Signature Unsigned Intra-Procedure 03/28/2020 Jhoana Silver 1:42:42 PM RT(R) Intra-Procedure 03/28/2020 Lashell Mckay RN 1:43:24 PM Intra-Procedure 03/28/2020 Dimas Chávez MD 1:43:[address] [address]
[2020-03-28] MEDS ORDERED: ISOSORBIDE MONO30 M1 PO (11:17)
[2020-03-28] MEDS ORDERED: HYDROCHLOROTH12.5 M1 PO (11:19)
[2020-03-28] MEDS ORDERED: CRESTOR40 MG PO (11:19)
[2020-03-28] MEDS ORDERED: LISINOPRIL10 MG PO (11:20)
[2020-03-28 12:41] VITALS: BP 133/68; Ht 180.3 cm; Wt 91.3 kg
[2020-03-28 12:48] LABS: BASOPHILS 0.4 % (0-2); EOSINOPHILS 1.7 % (0-7); HEMATOCRIT 46.8 % (42.0-54.0); HEMOGLOBIN 15.8 g/dL (13.5-17.5); IMMATURE GRANULOCYTES 0.3 % (0-5); LYMPHOCYTES 36.4 % (15-50); MCH 29.4 pg (26.0-34.0); MCHC 33.8 g/dL (31.0-37.0); MCV 87.2 fL (80.0-100.0); MEAN PLATELET VOLUME 9.1 fL (7.4-10.4); MONOCYTES 8.9 % (2-11); NEUTROPHILS 52.3 % (40-80); RBC 5.37 10x6/uL (4.20-6.10); RDW 13.3 % (11.5-14.5); WBC 7.9 10x3/uL (4.8-10.8)
[2020-03-28 12:52] LABS: PLATELET COUNT 293 10x3/uL (130-400)
[2020-03-28 13:24] LABS: ANION GAP 11.1 mmol/L (8-16); CALCIUM 8.9 mg/dL (8.5-10.1); CARBON DIOXIDE 25.4 mmol/L (21.0-32.0); CHOL - HDL RATIO 3.5 ratio (2.3-4.9); CREATININE - SERUM 1.1 mg/dL (0.6-1.3); LDL-HDL RATIO 1.2 ratio (1.5-3.5); POTASSIUM - SERUM 4.5 mmol/L (3.5-5.1)
--- NOTE | 2020-03-28 13:52 | NUR ---
PT ARRIVED BY STRETCHER. PLACED ON MONITORS. ASSESSMENT COMPLETED. VSS AT THIS TIME. CALL LIGHT WITHIN REACH. FAMILY AT BEDSIDE.
--- NOTE | 2020-03-28 14:00 | NUR ---
DR. JAUREGUI ROUNDED AND SPOKE WITH PT AND PT'S FRIEND AT BEDSIDE.
--- NOTE | 2020-03-28 14:07 | NUR ---
RIGHT WRIST Z BAND IN PLACE. NO BLEEDING/HEMATOMA NOTED. CALL LIGHT WITHIN REACH. VSS AT THIS TIME. PT RESTING COMFORTABLY.
--- NOTE | 2020-03-28 14:44 | NUR ---
PT RESTING COMFORTABLY. DENIES NAUSEA/PAIN. VSS. RIGHT WRIST Z BAND IN PLACE. NO BLEEDING/HEMATOMA NOTED. PT SET UP WITH SANDWICH AND DRINK AT THIS TIME. FAMILY AT BEDSIDE. CALL LIGHT WITHIN REACH.
--- NOTE | 2020-03-28 15:00 | NUR ---
2cc OF AIR REMOVED FROM Z BAND. NO BLEEDING/HEMATOMA NOTED. TOLERATING WELL. VSS. CALL LIGHT WITHIN REACH.
--- NOTE | 2020-03-28 15:15 | NUR ---
3cc OF AIR REMOVED FROM Z BAND. NO BLEEDING/HEMATOMA NOTED. CALL LIGHT WITHIN REACH. VSS AT THIS TIME.
--- NOTE | 2020-03-28 15:30 | NUR ---
4cc OF AIR REMOVED FROM Z BAND. NO BLEEDING/HEMATOMA NOTED. CALL LIGHT WITHIN REACH. PT C/O IT HURTING AT PUNCTURE SITE. STATES "I DON'T REMEMBER IT HURTING LIKE THIS LAST TIME". NO HEMATOMA NOTED. CAP REFILL TO RIGHT HAND < 3 SECS. RIGHT HAND WARM TO TOUCH. NO C/O NUMBNESS/TINGLING. WILL MONITOR.
--- NOTE | 2020-03-28 15:45 | NUR ---
Z BAND REMOVED AND DRESSING APPLIED. NO BLEEDING/HEMATOMA NOTED. PIV D/C'D WITH CATH TIP INTACT. PT INSTRUCTED TO GET UP AND DRESSED AT THIS TIME.
--- NOTE | 2020-03-28 16:00 | NUR ---
RIGHT WRIST DRESSING C/D/I. NO S/S OF HEMATOMA NOTED. DISCUSSED DISCHARGE INSTRUCTIONS WITH PT AND PT'S FAMILY. THEY VOICED UNDERSTANDING.
--- NOTE | 2020-03-28 16:10 | NUR ---
PT AMBULATED TO RESTROOM. VOIDED WITHOUT DIFFICULTY. STEADY GAIT NOTED. PT TAKEN OUT TO VEHICLE BY WHEELCHAIR. NO S/S OF DISTRESS NOTED. ALL BELONGINGS AND PAPERWORK IN HAND.
== END 2020-03-28 16:10 | disposition home or self-care (01) ==
LOC: D.CATH 11:03
PROVIDERS: ATTEND Internal Medicine Cardiovascular Disease
DX: I25.119 Atherosclerotic heart disease of native coronary artery with unspecified angina pectoris (principal); R94.39 Abnormal result of other cardiovascular function study; R07.9 Chest pain, unspecified; I10 Essential (primary) hypertension; R06.00 Dyspnea, unspecified

== ENCOUNTER 2020-11-03 15:47 | Observation (INO) | payer OTHER ==
[~2020-11-03] VITALS: Ht 180.3 cm; Wt 90.9 kg
[~2020-11-03 15:47] MED LIST changes: +CRESTOR40 MG PO; +HYDROCHLOROTH12.5 M1 PO; +ISOSORBIDE MONO30 M1 PO; +LISINOPRIL10 MG PO
[2020-11-03 16:44] VITALS: BP 166/87
[2020-11-03 16:49] LABS: APTT 27.7 SECONDS (22.8-39.4); INR 1.05 (0.85-1.17); PROTIME 12.6 SECONDS (11.6-15.0)
[2020-11-03 16:53] LABS: CALC OSMOLALITY 288 mosm/kg (275-300); CALCIUM 9.2 mg/dL (8.5-10.1); CARBON DIOXIDE 24.4 mmol/L (21.0-32.0); CHLORIDE - SERUM 102 mmol/L (98-107); CREATININE - SERUM 1.5 mg/dL (0.6-1.3); POTASSIUM - SERUM 4.1 mmol/L (3.5-5.1); SODIUM 137 mmol/L (136-145); UREA NITROGEN 19 mg/dL (7-18); eGFR NON AFRICAN AMERICAN 51 mL/min (90-120)
[2020-11-03 16:54] LABS: GLUCOSE 340 mg/dL (74-106)
[2020-11-03 16:55] LABS: BASOPHILS 0.5 % (0-2); EOSINOPHILS 1.5 % (0-7); HEMATOCRIT 47.1 % (42.0-54.0); HEMOGLOBIN 16.1 g/dL (13.5-17.5); LYMPHOCYTES 34.6 % (15-50); MCH 29.3 pg (26.0-34.0); MCHC 34.2 g/dL (31.0-37.0); MCV 85.5 fL (80.0-100.0); MEAN PLATELET VOLUME 7.3 fL (7.4-10.4); MONOCYTES 8.7 % (2-11); NEUTROPHILS 54.7 % (40-80); PLATELET COUNT 351 10x3/uL (130-400); WBC 8.8 10x3/uL (4.8-10.8)
[2020-11-03 17:09] LABS: ALBUMIN 3.7 g/dL (3.4-5.0); ALKALINE PHOSPHATASE 100 U/L (30-120); ALT (SGPT) 37 U/L (10-68); BILIRUBIN - TOTAL 0.51 mg/dL (0.2-1.3); CKMB 0.9 U/L (0.0-3.6); CREATINE KINASE 116 UL (21-232); PROTEIN - SERUM 7.2 g/dL (6.4-8.2)
[2020-11-03 17:10] LABS: TROPONIN-I < 0.017 ng/mL (0.000-0.060)
--- NOTE | 2020-11-03 18:59 | NUR ---
PT REPORT GIVEN TO DENYS ROBERTS
--- NOTE | 2020-11-03 20:50 | NUR ---
RECEIVED FROM ER, PLACED ON TELEMTRY, MEDS AND HISTORY COMPLETE, WAITING FOR TO COME BACK WITH HIS OWN LANCETS TO CHECK BLOOD SUGAR, PROVIDED A SANDWICH AND DRINK, BED IS LOW, SRX2, CALL LIGHT IN REACH, WILL CONTINUE PLAN OF CARE
[2020-11-03 21:36] VITALS: BP 144/78
[2020-11-04 00:15] LABS: CKMB 1.1 U/L (0.0-3.6); CREATINE KINASE 98 UL (21-232)
[2020-11-04 00:25] LABS: TROPONIN-I < 0.017 ng/mL (0.000-0.060)
[2020-11-04 00:34] VITALS: BP 130/61
[2020-11-04 06:10] LABS: BASOPHILS 0.7 % (0-2); EOSINOPHILS 1.6 % (0-7); HEMATOCRIT 46.5 % (42.0-54.0); HEMOGLOBIN 16.1 g/dL (13.5-17.5); LYMPHOCYTES 35.1 % (15-50); MCH 29.5 pg (26.0-34.0); MCHC 34.7 g/dL (31.0-37.0); MCV 85.2 fL (80.0-100.0); MEAN PLATELET VOLUME 7.2 fL (7.4-10.4); MONOCYTES 8.2 % (2-11); NEUTROPHILS 54.4 % (40-80); PLATELET COUNT 340 10x3/uL (130-400); RBC 5.46 10x6/uL (4.20-6.10); RDW 13.9 % (11.5-14.5); WBC 9.6 10x3/uL (4.8-10.8)
[2020-11-04 06:38] LABS: ALBUMIN 3.5 g/dL (3.4-5.0); ALKALINE PHOSPHATASE 96 U/L (30-120); ALT (SGPT) 34 U/L (10-68); BILIRUBIN - TOTAL 0.64 mg/dL (0.2-1.3); CALC OSMOLALITY 278 mosm/kg (275-300); CALCIUM 8.9 mg/dL (8.5-10.1); CARBON DIOXIDE 22.6 mmol/L (21.0-32.0); CHLORIDE - SERUM 103 mmol/L (98-107); CKMB 0.6 U/L (0.0-3.6); CREATINE KINASE 80 UL (21-232); CREATININE - SERUM 1.2 mg/dL (0.6-1.3); POTASSIUM - SERUM 4.5 mmol/L (3.5-5.1); PROTEIN - SERUM 7.1 g/dL (6.4-8.2); SODIUM 135 mmol/L (136-145); TROPONIN-I < 0.017 ng/mL (0.000-0.060); UREA NITROGEN 19 mg/dL (7-18); eGFR NON AFRICAN AMERICAN 66 mL/min (90-120)
[2020-11-04 06:52] VITALS: BP 130/61; Ht 180.3 cm; Wt 90.9 kg
[2020-11-04 06:59] LABS: GLUCOSE 216 mg/dL (74-106)
--- NOTE | 2020-11-04 07:20 | NUR ---
RECIEVE REPORT. RESTING IN BED WITH EYES CLOSED. SPOUSE AT BEDSIDE. SINUS JENN 50 ON TELEMETRY. NO SIGNS OF DISTRESS. CONTINUE PLAN OF CARE AND SAFETY PRECAUTIONS.
[2020-11-04 08:00] VITALS: BP 115/62
--- NOTE | 2020-11-04 10:21 | NUR ---
ALERT AND ORIENTED X4. SITTING UP IN BED. DEMANDING TO LEAVE. REQUESTING AMA PAPER WORK. ENCOURAGE TO WAIT FOR DOCTOR. EXPLAIN IF LEAVING AMA INSURANCE WILL NOT PAY. PATIENT STATES, "YOU ALWAYS GOT A CATCH TO EVERYTHING. TELL THE DOCTOR TO GO AHEAD AND BRING DISCHARGE PAPER WORK IN WHEN HE COMES TO SEE ME."
[2020-11-04] MEDS ORDERED: RANEXA500 MG PO (12:59)
--- NOTE | 2020-11-04 14:21 | NUR ---
ALERT AND ORIENTED X4. SITTING UP IN BED. DC RT HAND IV TIP INTACT. DISCHARGE INSTRUCTIONS GIVEN VERBALLY AND WRITTEN. DISCHARGE PAPERS SIGNED ON CHART. AMBULATES TO RIDE PER PATIENT REQUEST. REMAINS FREE FROM INJURY.
--- NOTE | 2020-11-04 18:42 | MORECARE ---
CASE MANAGEMENT DISCHARGE SUMMARY PATIENT: STACEY SOUZA UNIT: [id number] ADM DATE: 11/03/20 AGE: 55 : 63 SEX: M ROOM/BED: D.[facility] AUTHOR: ABELARDODOC PHYSICIAN: REFERRING PHYSICIAN: BIJU RAMIREZ MD DATE OF SERVICE: 11/04/20 Case Management Discharge Planning Summary DCP REVIEW SUMMARY ANTICIPATED D/C DATE: EXPECTED LOS : CASE STATUS: DCP Complete INITIAL REVIEW: 11/03/2020 INITIAL REVIEWER: Desi De Oliveira FINAL DISCHARGE DISPOSITION: : FINAL REVIEWER: FINAL REVIEW DATE: DCP [employer] Questions & Answers QUESTION: ANSWER : PATIENT: STACEY SOUZA ENCOUNTER: [id number] MEDICAL RECORD#: [id number] ADMISSION DATE: 11/03/2020 DISCHARGE DATE: 11/04/2020 ATTENDING MD: BIJU JUAN : AGE: 55 MARITAL STATUS: D DC PLAN ID: [id number] FACILITY: [facility] PRINTED ON: 11/04/20 18:41 CT All edits/amendments must be made on the electronic document DICTATION DATE: 11/04/201840 IRRIGATOR GRAVITY FLOW: DM 11/04/201840 RPT#: [id number] DC DATE:11/04/20 STATUS: DIS IN [facility] [address] [place] [address] END OF REPORT
== END 2020-11-04 14:22 | disposition home or self-care (01) ==
LOC: D.ER 15:47 → D.M2 19:34 → OBSVTIME 19:34 → D.M2 11-04 14:22
PROVIDERS: Family Medicine; ADMIT Legal Medicine; ATTEND Legal Medicine
DX: I20.9 Angina pectoris, unspecified (principal); R07.9 Chest pain, unspecified; N18.9 Chronic kidney disease, unspecified; E11.22 Type 2 diabetes mellitus with diabetic chronic kidney disease; E11.65 Type 2 diabetes mellitus with hyperglycemia; E78.5 Hyperlipidemia, unspecified; Z79.4 Long term (current) use of insulin; I12.9 Hypertensive chronic kidney disease with stage 1 through stage 4 chronic kidney disease, or unspecified chronic kidney disease